=== PATIENT | male | born 1950 | race Caucasian/White ===

== ENCOUNTER 2016-12-23 08:14 | Emergency (ER) | payer MEDICARE ==
[2016-12-23 08:26] VITALS: BP 120/65
--- NOTE | 2016-12-23 09:31 | UC ---
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 no fever. - History of Current Complaint Chief Complaint: UCGeneralIllness Stated Complaint: SORE THROAT Time Seen by Provider: 12/23/16 08:27 Hx Obtained From: Patient Onset/Duration: Gradual Onset, Lasting Days Severity: Moderate Pain Intensity: 6 Pain Scale Used: 0-10 Numeric Cough: Productive - yellow Associated Signs & Symptoms: Positive: Dysphagia, Hoarseness, Nasal Discharge. Negative: Fever - Epiglottits Risk Factors Epiglottis Risk Factors: Negative - Allergies/Home Medications Allergies/Adverse Reactions: Allergies Allergy/AdvReac Type Severity Reaction Status Date / Time No Known Allergies Allergy Verified 04/21/15 21:27 Home Medications: Home Medications A-Fib 1 tab PO DAILY 12/23/16 [History Confirmed 12/23/16] Aspirin [Aspirin Childrens] 81 mg PO DAILY 12/23/16 [History Confirmed 12/23/16] Metformin HCl [Glucophage] 1,000 mg PO DAILY 12/23/16 [History Confirmed ] PMH/Surg Hx/FS Hx/Imm Hx Endocrine History Of: Reports: Diabetes Cardiovascular History Of: Reports: Cardiac Disorders - A-fib, Hypertension - Surgical History Surgical History: Yes Surgery Procedure, Year, and Place: cardiac catheterization - Family History Known Family History: Positive: Cardiac Disease - Social History 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 Alcohol Use: Rare Substance Use Type: None Smoking Status (MU): Former Smoker When Did the Patient Quit Smoking/Using Tobacco: ~1984 - Immunization History Most Recent Tetanus Shot: Unsure Review of Systems Constitutional: Negative Skin: Negative Eyes: Negative ENT: Sore Throat Respiratory: Cough Cardiovascular: Negative Gastrointestinal: Negative Genitourinary: Negative Motor: Negative Neurovascular: Negative Musculoskeletal: Negative Neurological: Negative Psychological: Negative All Other Systems Reviewed And Are Negative: Yes Physical Exam Triage Information Reviewed: Yes Appearance: Ill-Appearing, Pain Distress, Obese Vital Signs: Initial Vital Signs Temp 98.4 F 12/23/16 08:20 Pulse 71 12/23/16 08:20 Resp 16 12/23/16 08:20 BP 120/65 12/23/16 08:20 Pulse Ox 95 12/23/16 08:20 Vital Signs Reviewed: Yes Eyes: Positive: Conjunctiva Clear ENT: Positive: Pharyngeal erythema, Nasal drainage, TMs normal, Tonsillar swelling Neck: Positive: Supple, Nontender, No Lymphadenopathy Respiratory: Positive: Lungs clear, Normal breath sounds, No respiratory distress Cardiovascular: Positive: RRR, No Murmur, Pulses Normal, Brisk Capillary Refill Musculoskeletal: Positive: Strength Intact, ROM Intact Neurological: Positive: Alert, Muscle Tone Normal Psychological Exam: Normal Skin Exam: Normal Throat Pain/Nasal Course/Dx - Course Course Of Treatment: rapid strep positive - Differential Dx/Diagnosis Differential Diagnosis/HQI/PQRI: Influenza, Pharyngitis, Sinusitis, URI Provider Diagnoses: strep pharyngitis Discharge - Discharge Plan Condition: Stable Disposition: HOME Prescriptions: Amoxicillin (*) 875 mg PO BID #20 tab Patient Education Materials: Strep Throat (ED) Referrals: Delfino Cochran MD [Primary Care Provider] -
== END 2016-12-23 09:44 | disposition home or self-care (01) ==
LOC: UCCORT 08:14
DX: J02.0 Streptococcal pharyngitis (principal); E11.9 Type 2 diabetes mellitus without complications; E66.9 Obesity, unspecified; Z87.891 Personal history of nicotine dependence; Z79.82 Long term (current) use of aspirin
CPT/HCPCS: 87651; 99212; G0463

== ENCOUNTER 2017-01-20 11:13 | Emergency (ER) | payer MEDICARE ==
[2017-01-20 13:32] VITALS: BP 121/63
--- NOTE | 2017-01-20 13:39 | UC ---
Throat Pain/Nasal Elian HPI - HPI Summary HPI Summary: Day 2 of body aches and sore throat - History of Current Complaint Chief Complaint: UCGeneralIllness Stated Complaint: SORE THROAT,FEVER Time Seen by Provider: 01/20/17 13:26 Hx Obtained From: Patient Onset/Duration: Sudden Onset, Lasting Days - 2, Still Present Severity: Moderate Pain Intensity: 6 Pain Scale Used: 0-10 Numeric Cough: None Associated Signs & Symptoms: Positive: Negative - Allergies/Home Medications Allergies/Adverse Reactions: Allergies Allergy/AdvReac Type Severity Reaction Status Date / Time No Known Allergies Allergy Verified 01/20/17 13:33 Home Medications: Home Medications Diltiazem HCl Coated Beads [Cartia Xt] 120 mg PO DAILY 01/20/17 [History Confirmed 01/20/17] PMH/Surg Hx/FS Hx/Imm Hx Previously Healthy: No Endocrine History Of: Reports: Diabetes Cardiovascular History Of: Reports: Cardiac Disorders - A-fib, Hypertension - Surgical History Surgical History: Yes Surgery Procedure, Year, and Place: cardiac catheterization - Family History Known Family History: Positive: Cardiac Disease - Social History Occupation: Employed Full-time - owns a daycare, Retired - from [email or web address] Lives: With Family Alcohol Use: Rare Substance Use Type: None Smoking Status (MU): Former Smoker When Did the Patient Quit Smoking/Using Tobacco: ~1985 - Immunization History Most Recent Influenza Vaccination: Current for Season Most Recent Tetanus Shot: 04/21/15 Review of Systems Constitutional: Fatigue Skin: Negative Eyes: Negative ENT: Sore Throat Respiratory: Negative Cardiovascular: Negative Gastrointestinal: Negative Genitourinary: Negative Motor: Negative Neurovascular: Negative Musculoskeletal: Arthralgia, Myalgia Neurological: Negative Psychological: Negative All Other Systems Reviewed And Are Negative: Yes Physical Exam Triage Information Reviewed: Yes Appearance: Well-Appearing, No Pain Distress, Well-Nourished Vital Signs: Initial Vital Signs Temp 97.2 F 01/20/17 13:28 Pulse 50 01/20/17 13:28 Resp 16 01/20/17 13:28 BP 121/63 01/20/17 13:28 Pulse Ox 94 01/20/17 13:28 Vital Signs Reviewed: Yes Eye Exam: Normal Eyes: Positive: Conjunctiva Clear ENT Exam: Other ENT: Positive: Hearing grossly normal, Pharyngeal erythema, Nasal congestion, TMs normal. Negative: Nasal drainage, Tonsillar swelling, Tonsillar exudate, Trismus, Muffled/hoarse voice Neck exam: Normal Neck: Positive: Supple, Nontender, No Lymphadenopathy Respiratory Exam: Normal Respiratory: Positive: Chest non-tender, Lungs clear, Normal breath sounds, No respiratory distress, No accessory muscle use Cardiovascular Exam: Other - irregular (pt reports chronic a-fib) Cardiovascular: Positive: No Murmur, Pulses Normal, Brisk Capillary Refill Musculoskeletal Exam: Normal Musculoskeletal: Positive: Strength Intact, ROM Intact, No Edema Neurological Exam: Normal Neurological: Positive: Alert, Muscle Tone Normal Psychological Exam: Normal Skin Exam: Normal Diagnostics - Laboratory Diagnostic Studies Completed/Ordered: RST (+) Throat Pain/Nasal Course/Dx - Course Course Of Treatment: Amoxicillin, increase fluids, follow with pcp, tylenol for pain - Differential Dx/Diagnosis Differential Diagnosis/HQI/PQRI: Influenza, Laryngitis, Pharyngitis, Sinusitis, URI Provider Diagnoses: Strep Pharyngitis Discharge - Discharge Plan Condition: Stable Disposition: HOME Prescriptions: Amoxicillin CAP* 500 mg PO TID #30 cap Patient Education Materials: Acetaminophen (By mouth), Strep Throat (ED) Referrals: Delfino Cochran MD [Primary Care Provider] - If Needed
== END 2017-01-20 14:06 | disposition home or self-care (01) ==
LOC: UCCORT 11:13
DX: J02.0 Streptococcal pharyngitis (principal); I48.91 Unspecified atrial fibrillation; Z87.891 Personal history of nicotine dependence
CPT/HCPCS: 87651; 99212; G0463

== ENCOUNTER 2017-02-12 07:04 | Emergency (ER) | payer MEDICARE ==
[2017-02-12 07:19] VITALS: BP 135/71
--- NOTE | 2017-02-12 07:29 | UC ---
Throat Pain/Nasal Elian HPI - HPI Summary HPI Summary: SORE THROAT X 2 DAYS + NASAL CONGESTION , NO COUGH, NO FEVER OR CHILLS - History of Current Complaint Chief Complaint: UCRespiratory Stated Complaint: SORE THROAT Time Seen by Provider: 02/12/17 07:18 Hx Obtained From: Patient Onset/Duration: Gradual Onset, Lasting Days - 2, Still Present Severity: Moderate Cough: None Associated Signs & Symptoms: Positive: Nasal Discharge. Negative: Dysphagia, FB Sensation, Drooling, Wheezing, Hoarseness, Sinus Discomfort, Fever, Vomiting , Rash - Allergies/Home Medications Allergies/Adverse Reactions: Allergies Allergy/AdvReac Type Severity Reaction Status Date / Time No Known Allergies Allergy Verified 02/12/17 07:19 Home Medications: Home Medications Ibuprofen TAB* [Motrin TAB* 800 MG] 800 mg PO ONCE PRN 02/12/17 [History Confirmed 02/12/17] PMH/Surg Hx/FS Hx/Imm Hx Endocrine History Of: Reports: Diabetes Cardiovascular History Of: Reports: Cardiac Disorders - A-fib, Hypertension - Surgical History Surgical History: Yes Surgery Procedure, Year, and Place: cardiac catheterization - Family History Known Family History: Positive: Cardiac Disease - Social History Alcohol Use: Rare Substance Use Type: None Smoking Status (MU): Former Smoker When Did the Patient Quit Smoking/Using Tobacco: ~1985 - Immunization History Most Recent Influenza Vaccination: Current for Season Most Recent Tetanus Shot: 04/21/15 Review of Systems Constitutional: Negative Skin: Negative Eyes: Negative ENT: Sore Throat, Nasal Discharge Respiratory: Negative Cardiovascular: Negative Gastrointestinal: Negative All Other Systems Reviewed And Are Negative: Yes Physical Exam Triage Information Reviewed: Yes Appearance: Well-Appearing, No Pain Distress, Well-Nourished Vital Signs: Initial Vital Signs Temp 97.7 F 02/12/17 07:09 Pulse 67 02/12/17 07:09 Resp 18 02/12/17 07:09 BP 135/71 02/12/17 07:09 Eyes: Positive: Conjunctiva Clear ENT Exam: Normal ENT: Positive: Normal ENT inspection, Hearing grossly normal, Pharyngeal erythema, Nasal congestion. Negative: Nasal drainage, TMs normal, TM bulging, TM dull, TM red Neck exam: Normal Neck: Positive: Supple, Nontender, No Lymphadenopathy Respiratory Exam: Normal Respiratory: Positive: Chest non-tender, Lungs clear, Normal breath sounds, No respiratory distress Cardiovascular: Positive: RRR, No Murmur, Pulses Normal, Brisk Capillary Refill Abdominal Exam: Normal Skin Exam: Normal Throat Pain/Nasal Course/Dx - Differential Dx/Diagnosis Provider Diagnoses: STREP PHARYNGITIS Discharge - Discharge Plan Condition: Stable Disposition: HOME Prescriptions: Amoxicillin (*) [Amoxicillin 875 MG (*)] 875 mg PO BID #20 tab Referrals: Delfino Cochran MD [Primary Care Provider] - If Needed
== END 2017-02-12 07:35 | disposition home or self-care (01) ==
LOC: UCCORT 07:04
DX: J02.0 Streptococcal pharyngitis (principal); I48.91 Unspecified atrial fibrillation; Z87.891 Personal history of nicotine dependence
CPT/HCPCS: 87651; 99212; G0463

== ENCOUNTER 2017-03-05 10:12 | Emergency (ER) | payer MEDICARE ==
[2017-03-05 11:26] VITALS: BP 114/59
--- NOTE | 2017-03-05 11:58 | UC ---
Throat Pain/Nasal Elian HPI - HPI Summary HPI Summary: ST and feeling worn-out since last night. Pt feels like it is strep -- has been dx with strep here 3 other times since December, is pursuing a follow-up with an ENT (sister works for one and will get him an appointment). Owns daycare center. Last treatment was February 12, felt like symptoms completely disappeared until last night. - History of Current Complaint Chief Complaint: UCRespiratory Stated Complaint: SORE THROAT,FATIGUE Time Seen by Provider: 03/05/17 11:28 Hx Obtained From: Patient Onset/Duration: Gradual Onset, Lasting Hours Severity: Mild Cough: None - Allergies/Home Medications Allergies/Adverse Reactions: Allergies Allergy/AdvReac Type Severity Reaction Status Date / Time No Known Allergies Allergy Verified 03/05/17 11:26 PMH/Surg Hx/FS Hx/Imm Hx Endocrine History Of: Reports: Diabetes Cardiovascular History Of: Reports: Cardiac Disorders - A-fib, Hypertension - Surgical History Surgical History: Yes Surgery Procedure, Year, and Place: cardiac catheterization - Family History Known Family History: Positive: Cardiac Disease - Social History Occupation: Employed Full-time Alcohol Use: None Substance Use Type: None Smoking Status (MU): Former Smoker When Did the Patient Quit Smoking/Using Tobacco: ~1984 - Immunization History Most Recent Influenza Vaccination: Current for Season Most Recent Tetanus Shot: 04/21/15 Review of Systems Constitutional: Fatigue Skin: Negative Eyes: Negative ENT: Sore Throat Respiratory: Negative Cardiovascular: Negative Gastrointestinal: Negative Genitourinary: Negative Motor: Negative Neurovascular: Negative Musculoskeletal: Negative Neurological: Negative Psychological: Negative All Other Systems Reviewed And Are Negative: Yes Physical Exam Triage Information Reviewed: Yes Appearance: Well-Appearing, No Pain Distress, Well-Nourished Vital Signs: Initial Vital Signs Temp 97.6 F 03/05/17 11:20 Pulse 66 03/05/17 11:20 Resp 18 03/05/17 11:20 BP 114/59 03/05/17 11:20 Pulse Ox 95 03/05/17 11:20 Vital Signs Reviewed: Yes Eye Exam: Normal Eyes: Positive: Conjunctiva Clear ENT Exam: Normal ENT: Positive: Hearing grossly normal, Pharynx normal, TMs normal. Negative: Tonsillar swelling, Tonsillar exudate Dental Exam: Normal Neck: Positive: Nontender, Enlarged Nodes @ - tonsillar Respiratory Exam: Normal Respiratory: Positive: Chest non-tender, Lungs clear, Normal breath sounds, No respiratory distress, No accessory muscle use Cardiovascular Exam: Normal Cardiovascular: Positive: RRR, No Murmur Musculoskeletal Exam: Normal Neurological Exam: Normal Neurological: Positive: Alert Psychological Exam: Normal Skin Exam: Normal Throat Pain/Nasal Course/Dx - Differential Dx/Diagnosis Provider Diagnoses: recurrent strep throat Discharge - Discharge Plan Condition: Stable Disposition: HOME Prescriptions: Cefuroxime Axetil [Ceftin 250 MG] 250 mg PO BID #20 tab Patient Education Materials: Strep Throat (ED) Referrals: Delfino Cochran MD [Primary Care Provider] - Additional Instructions: If you have trouble arranging for follow-up with the ENT of your choice, you can call [phone] to arrange for an appointment with one in [place].
== END 2017-03-05 12:12 | disposition home or self-care (01) ==
LOC: UCCORT 10:12
DX: J02.0 Streptococcal pharyngitis (principal); E11.9 Type 2 diabetes mellitus without complications; I48.91 Unspecified atrial fibrillation; I10 Essential (primary) hypertension; Z87.891 Personal history of nicotine dependence
CPT/HCPCS: 87651; 99212; G0463

== ENCOUNTER 2017-11-18 09:12 | Emergency (ER) | payer MEDICARE ==
--- NOTE | 2017-11-18 09:51 | UC ---
Throat Pain/Nasal Elian HPI - HPI Summary HPI Summary: 67 y/o male presents to the urgent care c/o sore throat and Rt side ear pain for the past 3 days. Pt reports he has Hx of recurrent strep infections. This year he has visit the clinic 5X with strep. He f/u with ENT on 04/2017 and he recommended that if one more time he will do surgery on him. However symptoms resolved in the summer and now are back. Pt states he has Hx of A-fib, HTN on BB. His PCP change the BB about 6 months, but he can't recall the name of medication. Pain with swallowing is 5/10. He has not taking anything to alleviate symptoms. Pt denies nasal congestion, cough, FOSTER, SOB, chest pain, N/V/ D or abdominal pain or urinary symptoms. 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 Negative : Fever - Epiglottits Risk Factors Epiglottis Risk Factors: Negative - Allergies/Home Medications Allergies/Adverse Reactions: Allergies Allergy/AdvReac Type Severity Reaction Status Date / Time No Known Allergies Allergy Verified 11/18/17 10:00 Home Medications: Home Medications Other Bp Med 1 tab PO DAILY 11/18/17 [History Confirmed 11/18/17] PMH/Surg Hx/FS Hx/Imm Hx Previously Healthy: Yes Endocrine History: Diabetes Cardiovascular History: Hypertension, Atrial Fibrillation Psychological History: Anxiety - Surgical History Surgical History: Yes Surgery Procedure, Year, and Place: cardiac catheterization - Family History Known Family History: Positive: Cardiac Disease, Hypertension - Social History Occupation: Employed Full-time Lives: With Family Alcohol Use: None Substance Use Type: None Smoking Status (MU): Former Smoker When Did the Patient Quit Smoking/Using Tobacco: ~1984 - Immunization History Most Recent Influenza Vaccination: Current for Season Most Recent Tetanus Shot: 04/21/15 Review of Systems Constitutional: Negative Skin: Negative Eyes: Negative ENT: Sore Throat, Ear Ache - RT ear pain Respiratory: Negative Cardiovascular: Negative Gastrointestinal: Negative Genitourinary: Negative Motor: Negative Neurovascular: Negative Musculoskeletal: Negative Neurological: Negative Psychological: Negative Is Patient Immunocompromised?: No All Other Systems Reviewed And Are Negative: Yes Physical Exam Triage Information Reviewed: Yes - Additional Comments VITAL SIGNS: Reviewed. GENERAL: Patient is a well developed and nourished obese male who is sitting comfortable in the examining table. Patient is not in any acute respiratory distress. HEAD AND FACE: No signs of trauma. No ecchymosis, hematomas or skull depressions. No sinus tenderness. EYES: PERRLA, EOMI x 2, No injected conjunctiva, no nystagmus. No photophobia. EARS: Hearing grossly intact. Ear canals and tympanic membranes are within normal limits. MOUTH: Positive pharynx with erythema, no exudates, mild palatal petechiae. no B /L tonsillar enlargement. Uvula in midline. NECK: Supple, trachea is midline, Positive anterior cervical lymphadenopathy, no JVD, no carotid bruit, no c-spine tenderness, neck with full ROM. No meningeal signs, no Kernig's or brudzinskis signs. CHEST: Symmetric, no tenderness at palpation LUNGS: Clear to auscultation bilaterally. No wheezing or crackles. CVS: Regular rate and rhythm, S1 and S2 present, no murmurs or gallops appreciated. ABDOMEN: Soft, non-tender. No signs of distention. No rebound no guarding, and no masses palpated. Bowel sounds are normal. EXTREMITIES: FROM in all major joints, no edema, no cyanosis or clubbing. NEURO: Alert and oriented x 3. No acute neurological deficits. Speech is normal and follows commands. SKIN: Dry and warm Throat Pain/Nasal Course/Dx - Course Course Of Treatment: 67 y/o male presents to the urgent care c/o sore throat and Rt side ear pain for the past 3 days. Pt reports he has Hx of recurrent strep infections. This year he has visit the clinic 5X with strep. He f/u with ENT on 04/2017 and he recommended that if one more time he will do surgery on him. However symptoms resolved in the summer and now are back. Pt states he has Hx of A-fib, HTN on BB. His PCP changed the BB about 6 months, but he can't recall the name of medication. Pain with swallowing is 5/10. He has not taking anything to alleviate symptoms. Pt denies nasal congestion, cough, FOSTER, SOB, chest pain, N/V/D or abdominal pain or urinary symptoms. 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 Hx obtained. Pt with pharyngitis on examination. As per nurse Pt is bradycardic. Pt with Hx of A-fib on BB. Pt asymptomatic. However EKG ordered to r/o any abnormality: NSR, HR: 62bpm, no S - elevations. Pt with Viral pharyngitis.Pt Rx ibuprofen PO to alleviate symptoms of pain and swelling. Advised on hand washing to avoid spreading. Pt advised to rest, eat well and avoid strenuous exercise. If symptoms do not improve or worsen advised to return to the urgent care or f/u with her PCP for further evaluation and treatment. Pt understood and agreed - Differential Dx/Diagnosis Differential Diagnosis/HQI/PQRI: Influenza, Laryngitis, Mononucleosis, Peritonsillar Abscess, Pharyngitis, Tonsillitis, URI Provider Diagnoses: 1- Viral pharyngitis Discharge - Discharge Plan Condition: Stable Disposition: HOME Prescriptions: Acetaminophen TAB* [Tylenol TAB*] 650 mg PO Q6H PRN #20 tab PRN Reason: Sore Throat Patient Education Materials: Pharyngitis (ED), Low Sodium Diet (ED) Referrals: Delfino Cochran MD [Primary Care Provider] - Additional Instructions: 1-Please take Tylenol PO q6-8hrs prn as instructed after meals to alleviate pain and swelling. Increase fluid intake, eat well, rest and avoid strenuous exercise 2-If symptoms do not improve or worsen please return to the urgent care or f/u with your PCP for further evaluation and treatment. 3-Your BP is elevated today. please decrease salt in your diet, monitor BP and if it continues to be elevated please f/u with your PCP for further management
[2017-11-18 10:38] VITALS: BP 148/80
== END 2017-11-18 10:43 | disposition home or self-care (01) ==
LOC: UCCORT 09:12
DX: J02.9 Acute pharyngitis, unspecified (principal); I10 Essential (primary) hypertension; I48.91 Unspecified atrial fibrillation; F41.9 Anxiety disorder, unspecified; Z87.891 Personal history of nicotine dependence
CPT/HCPCS: 87651; 93005; 99212; G0463

== ENCOUNTER 2018-01-17 09:01 | Emergency (ER) | payer MEDICARE ==
[2018-01-17 10:45] VITALS: BP 102/69
--- NOTE | 2018-01-17 10:54 | UC ---
Throat Pain/Nasal Elian HPI - HPI Summary HPI Summary: PT IS C/O NASAL CONGESTION WITH THICK YELLOW DRAINAGE AND SINUS PAIN CAUSING A HEADACHE FOR 12 DAYS. HE NOTES HE ISN'T IMPROVING. HE DENIES FEVER. PT IS A DIABETIC BUT NOTES BS IS STABLE, NOT ELEVATED WITH THIS. THE POST NASAL DRIP IS CAUSING A SORE THROAT, COUGH AND HE NOTES EAR PRESSURE. - History of Current Complaint Stated Complaint: FOSTER,ST Time Seen by Provider: 01/17/18 10:42 Hx Obtained From: Patient Onset/Duration: Gradual Onset Pain Intensity: 5 Cough: Nonproductive Associated Signs & Symptoms: Positive: Sinus Discomfort, Nasal Discharge. Negative: Wheezing, Fever - Epiglottits Risk Factors Epiglottis Risk Factors: Negative - Allergies/Home Medications Allergies/Adverse Reactions: Allergies Allergy/AdvReac Type Severity Reaction Status Date / Time No Known Allergies Allergy Verified 11/18/17 10:00 Home Medications: Home Medications Atorvastatin* [Lipitor 40 MG*] 40 mg PO DAILY 01/17/18 [History Confirmed ] Dulaglutide [Trulicity] 01/17/18 [History] Metoprolol Tartrate [Lopressor] 100 mg PO 01/17/18 [History] PMH/Surg Hx/FS Hx/Imm Hx Previously Healthy: No - plus per triage note Endocrine History: Diabetes, Dyslipidemia Cardiovascular History: Hypertension, Atrial Fibrillation - Surgical History Surgical History: Yes Surgery Procedure, Year, and Place: cardiac catheterization - Family History Known Family History: Positive: Cardiac Disease, Hypertension - Social History Alcohol Use: None Substance Use Type: None Smoking Status (MU): Former Smoker Have You Smoked in the Last Year: No When Did the Patient Quit Smoking/Using Tobacco: ~1984 - Immunization History Most Recent Influenza Vaccination: Current for Season Most Recent Tetanus Shot: 04/21/15 Review of Systems Constitutional: Negative Skin: Negative Eyes: Negative ENT: Sore Throat, Ear Ache, Nasal Discharge, Sinus Congestion, Sinus Pain/ Tenderness Respiratory: Cough Cardiovascular: Negative Gastrointestinal: Negative Genitourinary: Negative Motor: Negative Neurovascular: Negative Musculoskeletal: Negative Neurological: Negative Psychological: Negative All Other Systems Reviewed And Are Negative: Yes Physical Exam Triage Information Reviewed: Yes Appearance: Well-Appearing Vital Signs: Initial Vital Signs Temp 97.8 F 01/17/18 10:38 Pulse 71 01/17/18 10:38 Resp 16 01/17/18 10:38 BP 102/69 01/17/18 10:38 Pulse Ox 98 01/17/18 10:38 Vital Signs Reviewed: Yes Eyes: Positive: Conjunctiva Clear ENT: Positive: Hearing grossly normal, Pharynx normal, Nasal congestion, Nasal drainage, TMs normal, Sinus tenderness Neck: Positive: Supple, Nontender, No Lymphadenopathy Respiratory: Positive: Lungs clear, Normal breath sounds Cardiovascular: Positive: No Murmur, Other: - irregular c/w his a-fib Abdomen Description: Positive: Nontender, No Organomegaly, Soft Bowel Sounds: Positive: Present Neurological Exam: Normal Psychological: Positive: Age Appropriate Behavior Skin Exam: Normal Throat Pain/Nasal Course/Dx - Course Course Of Treatment: ill x 12 days with sinus pain causing FOSTER and thick yellow d /c plus sinusitis on exam thus will tx. - Differential Dx/Diagnosis Provider Diagnoses: sinusitis Discharge - Discharge Plan Condition: Stable Disposition: HOME Prescriptions: Amoxicillin/Clavulanate TAB* [Augmentin TAB 875*] 875 mg PO BID 10 Days #20 tab Patient Education Materials: Sinusitis (ED) Referrals: Delfino Cochran MD [Primary Care Provider] - 7 Days Additional Instructions: CONSIDER FLONASE OVER THE COUNTER PER LABEL WELL.
== END 2018-01-17 10:59 | disposition home or self-care (01) ==
LOC: UCCORT 09:01
DX: J32.9 Chronic sinusitis, unspecified (principal); E78.5 Hyperlipidemia, unspecified; E11.9 Type 2 diabetes mellitus without complications; Z79.84 Long term (current) use of oral hypoglycemic drugs; I10 Essential (primary) hypertension; I48.91 Unspecified atrial fibrillation; Z87.891 Personal history of nicotine dependence
CPT/HCPCS: 99212; G0463

== ENCOUNTER 2018-04-17 12:14 | Emergency (ER) | payer MEDICARE ==
--- NOTE | 2018-04-17 13:21 | UC ---
Lower Extremity/Ankle HPI - HPI Summary HPI Summary: pain left great toe x 5 days + redness , swelling , discharge, no injury - History of Current Complaint Chief Complaint: UCSkin Stated Complaint: LT FOOT COMP Time Seen by Provider: 04/17/18 12:53 Hx Obtained From: Patient Onset/Duration: Gradual Onset, Lasting Days - 5, Still Present Severity Currently: Moderate Pain Intensity: 10 Aggravating Factor(s): Standing, Ambulation Alleviating Factor(s): Nothing Able to Bear Weight: Yes - Allergies/Home Medications Allergies/Adverse Reactions: Allergies Allergy/AdvReac Type Severity Reaction Status Date / Time No Known Allergies Allergy Verified 04/17/18 12:49 PMH/Surg Hx/FS Hx/Imm Hx Cardiovascular History: Cardiac Disease, Hypertension, Atrial Fibrillation - Surgical History Surgical History: Yes Surgery Procedure, Year, and Place: cardiac catheterization - Family History Known Family History: Positive: Cardiac Disease, Hypertension - Social History Alcohol Use: None Substance Use Type: None Smoking Status (MU): Former Smoker Have You Smoked in the Last Year: No When Did the Patient Quit Smoking/Using Tobacco: ~1984 - Immunization History Most Recent Influenza Vaccination: Current for Season Most Recent Tetanus Shot: 04/21/15 Review of Systems Constitutional: Negative Skin: Negative Eyes: Negative ENT: Negative Respiratory: Negative Cardiovascular: Negative Gastrointestinal: Negative Motor: Negative Is Patient Immunocompromised?: No All Other Systems Reviewed And Are Negative: Yes Physical Exam Triage Information Reviewed: Yes Appearance: Well-Appearing, No Pain Distress, Well-Nourished Vital Signs: Initial Vital Signs Temp 97.5 F 04/17/18 12:47 Pulse 40 04/17/18 12:47 Resp 16 04/17/18 12:47 BP 101/0 04/17/18 12:47 Pulse Ox 96 04/17/18 12:47 Vital Signs Reviewed: Yes Eyes: Positive: Conjunctiva Clear ENT: Positive: Normal ENT inspection, Hearing grossly normal, Pharynx normal Neck exam: Normal Neck: Positive: Supple, Nontender, No Lymphadenopathy Respiratory: Positive: Chest non-tender, Lungs clear, Normal breath sounds Cardiovascular: Positive: Bradycardia, Other: - irrigularly irrigular Abdominal Exam: Normal Skin: Positive: Other - left great toe : + paronychia, swelling , erythema , tender to touch Lower Extremity Course/Dx - Differential Dx/Diagnosis Provider Diagnoses: [email or web address] Discharge - Sign-Out/Discharge Documenting (check all that apply): Discharge/Admit/Transfer - Discharge Plan Condition: Good Disposition: HOME Prescriptions: Cephalexin CAP* [Keflex CAP*] 500 mg PO TID #30 cap Patient Education Materials: A-fib (Atrial Fibrillation) (ED), Paronychia (ED) Referrals: Claus Correia MD [Medical Doctor] - 04/17/18 1:16 pm Sohan Teixeira DO [Primary Care Provider] - 7 Days Additional Instructions: please follow up with your family consumer science teacher jose martin - Billing Disposition and Condition Condition: GOOD Disposition: HOME
== END 2018-04-17 13:30 | disposition home or self-care (01) ==
LOC: UCCORT 12:14
DX: L03.032 Cellulitis of left toe (principal); I48.91 Unspecified atrial fibrillation; Z87.891 Personal history of nicotine dependence; I10 Essential (primary) hypertension
CPT/HCPCS: 93005; 99212; G0463

== ENCOUNTER 2018-05-30 07:02 | Emergency (ER) | payer MEDICARE ==
[2018-05-30 07:20] VITALS: BP 111/73
--- NOTE | 2018-05-30 07:29 | UC ---
Throat Pain/Nasal Elian HPI - HPI Summary HPI Summary: Patient presents to with complaints of sore throat since 2 days. Patient states pain mostly on the left side. Patient states it seems worse at night. Patient has taken ibuprofen with good relief. Patient denies headache. Patient does have postnasal drip which causes him to cough. Patient denies fevers or chills. Mild painful swallowing. No drooling. No difficulty with secretions. No nausea or vomiting. Patient states he went to daycare frequently Strep. Patient states this feels slightly different than past experiences. There was a child with positive strep yesterday. Patient's medications reviewed this visit - History of Current Complaint Chief Complaint: UCRespiratory Stated Complaint: SORE THROAT Time Seen by Provider: 05/30/18 07:11 Hx Obtained From: Patient, Medical Records Onset/Duration: Gradual Onset Severity: Moderate Pain Intensity: 4 Pain Scale Used: 0-10 Numeric Cough: Nonproductive - Allergies/Home Medications Allergies/Adverse Reactions: Allergies Allergy/AdvReac Type Severity Reaction Status Date / Time No Known Allergies Allergy Verified 05/30/18 07:20 PMH/Surg Hx/FS Hx/Imm Hx Previously Healthy: Yes Endocrine History: Diabetes Cardiovascular History: Hypertension - Surgical History Surgical History: Yes Surgery Procedure, Year, and Place: cardiac catheterization - Family History Known Family History: Positive: Cardiac Disease, Hypertension - Social History Occupation: Employed Full-time - Owns a daycare Lives: With Family Alcohol Use: None Substance Use Type: None Smoking Status (MU): Former Smoker Type: Cigarettes Amount Used/How Often: 1 ppd Have You Smoked in the Last Year: No When Did the Patient Quit Smoking/Using Tobacco: ~1984 - Immunization History Most Recent Influenza Vaccination: Current for Season Most Recent Tetanus Shot: 04/21/15 Review of Systems Constitutional: Negative ENT: Sore Throat, Other - Postnasal drip All Other Systems Reviewed And Are Negative: Yes Physical Exam - Summary Physical Exam Summary: Vital Signs Reviewed: Yes A+Ox3, no distress Eyes: Conjunctiva Clear, ANASTACIO. EOM intact and full ENT: Hearing grossly normal left TM with fluid. no erythema, no buldge turbinates boggy, mmoist, uvula midline, no exudate, no erythema Neck: Positive: Supple mild left submand LA Respiratory: Positive: No respiratory distress, No accessory muscle use + CTA throughout no w/r Cardiovascular: RRR nl s1, s2 no m/r CBT <2 sec abd soft + BS nt/nd no guarding, no distension Musculoskeletal Exam: WATTERS x 4 without difficulty Neurological: Positive: Alert, + sensation throughout Psychological: Positive: Normal Response To Family Skin: Positive: no rash, no ecchymosis Triage Information Reviewed: Yes Vital Signs: Initial Vital Signs Temp 96.9 F 05/30/18 07:15 Pulse 69 05/30/18 07:15 Resp 16 05/30/18 07:15 BP 111/73 05/30/18 07:15 Pulse Ox 96 05/30/18 07:15 Throat Pain/Nasal Course/Dx - Course Course Of Treatment: Patient presents emergency Department with left-sided throat pain radiated towards his left ear. Patient with the daycare was exposed to strep. Patient states he has frequently had strep in the past. Vital signs are stable. On exam, patient with some serous otitis on the left. Patient also with boggy turbinates and postnasal drip. Patient does not have any erythema or exudate. Patient's rapid strep is negative. We will send for culture given his exposures. Will not start antibiotics at this time. Will recommend patient take allergy medications such as Claritin or Yaneli. Also will prescribe Flonase. Discussed with patient this is a steroid may cause a slight increase in his blood sugars. Patient recommended to follow up with primary care provider. Patient comfortable and in agreement with plan. Strict return precautions. Secretion precautions discussed - Differential Dx/Diagnosis Provider Diagnoses: Pharyngitis. Post nasal drip. Left otitis serous Discharge - Sign-Out/Discharge Documenting (check all that apply): Discharge/Admit/Transfer - Discharge Plan Condition: Stable Disposition: HOME Prescriptions: Fluticasone NASAL SPRAY 50MCG* [Flonase NASAL SPRAY 50MCG*] 2 spray BOTH NARES DAILY #1 btl Patient Education Materials: Pharyngitis (ED), Serous Otitis Media (ED), Postnasal Drip (DC) Referrals: Sohan Teixeira DO [Primary Care Provider] - Additional Instructions: - Okay to alternate ibuprofen (Advil, Motrin) and Tylenol every 3 hours for pain. Take with food. Do NOT take for more than 4-5 days - Okay to gargle and spit every 4 hours as needed for pain - Stay well hydrated - frequent sips of cold fluids will be soothing to your throat (popsicles, jello, ice cream, ice water). Avoid excess caffeine until your symptoms have resolved. - Do not share eating, drinking utensils. Throw out your toothbrush when your symptoms resolved - use nasal spray daily as instructed. This may cause a mild increased in your blood sugar levels - it is recommended you take an allergy medications such as Claritin, Zytrec, Yaneli - Your throat sample has been sent for additional testing. These results will take 1-2 days to come back. If you need antibiotics, we will contact you. -Throat infections are spread by oral secretions - do not share eating or drinking utensils until you symptoms are resolved. Clean items that may get your secretions such as cell phones, ipads, computer mouse, television remotes - Contact your doctor to arrange a follow-up appointment as needed - Billing Disposition and Condition Condition: STABLE Disposition: Home
== END 2018-05-30 07:56 | disposition home or self-care (01) ==
LOC: UCCORT 07:02
DX: J02.9 Acute pharyngitis, unspecified (principal); R09.82 Postnasal drip; H65.92 Unspecified nonsuppurative otitis media, left ear; Z87.891 Personal history of nicotine dependence
CPT/HCPCS: 87070; 87651; 99212; G0463

== ENCOUNTER 2018-07-25 09:09 | Emergency (ER) | payer MEDICARE ==
[2018-07-25 09:58] VITALS: BP 144/85
--- NOTE | 2018-07-25 10:26 | UC ---
Complaint Male HPI - HPI Summary HPI Summary: FREQUENT-BURNING URINATION X 10 DAYS. TODAY NOTED SOME BLOOD WELL X1. NO FEVER, ABDOMEN OR FLANK PAIN. NO PELVIC PAIN. NO HX PROSTATITIS OR UTI'S - History of Current Complaint Chief Complaint: UCGU Stated Complaint: URINARY Time Seen by Provider: 07/25/18 10:17 Hx Obtained From: Patient Onset/Duration: Gradual Onset Timing: Constant Pain Intensity: 5 Aggravating Factor(s): Nothing Alleviating Factor(s): Nothing Associated Signs And Symptoms: Positive: Hematuria, Dysuria. Negative: Back Pain, Fever - Allergies/Home Medications Allergies/Adverse Reactions: Allergies Allergy/AdvReac Type Severity Reaction Status Date / Time No Known Allergies Allergy Verified 07/25/18 09:56 PMH/Surg Hx/FS Hx/Imm Hx Endocrine History: Diabetes, Dyslipidemia Cardiovascular History: Hypertension - Surgical History Surgical History: Yes Surgery Procedure, Year, and Place: cardiac catheterization - Family History Known Family History: Positive: Cardiac Disease, Hypertension - Social History Occupation: Retired Alcohol Use: None Substance Use Type: None Smoking Status (MU): Former Smoker Type: Cigarettes Amount Used/How Often: 1 ppd Have You Smoked in the Last Year: No When Did the Patient Quit Smoking/Using Tobacco: ~1984 - Immunization History Most Recent Influenza Vaccination: Current for Season Most Recent Tetanus Shot: 04/21/15 Vaccination Up to Date: Yes Review of Systems Constitutional: Negative Skin: Negative Eyes: Negative ENT: Negative Respiratory: Negative Cardiovascular: Negative Gastrointestinal: Negative Genitourinary: Dysuria, Hematuria, Frequency Motor: Negative Neurovascular: Negative Musculoskeletal: Negative Neurological: Negative Psychological: Negative Is Patient Immunocompromised?: No All Other Systems Reviewed And Are Negative: Yes Physical Exam Triage Information Reviewed: Yes Appearance: Well-Appearing Vital Signs: Initial Vital Signs Temp 97.4 F 07/25/18 09:53 Pulse 73 07/25/18 09:53 Resp 17 07/25/18 09:53 BP 144/85 07/25/18 09:53 Pulse Ox 96 07/25/18 09:53 Vital Signs Reviewed: Yes Eyes: Positive: Conjunctiva Clear ENT: Positive: Normal ENT inspection Neck: Positive: Supple, Nontender Respiratory: Positive: Lungs clear, Normal breath sounds Cardiovascular: Positive: RRR, No Murmur Abdomen Description: Positive: Nontender, No Organomegaly, Soft. Negative: CVA Tenderness (R), CVA Tenderness (L), Distended, Guarding Bowel Sounds: Positive: Present Musculoskeletal: Positive: ROM Intact Neurological: Positive: Alert Psychological: Positive: Age Appropriate Behavior Skin Exam: Normal Complaint Male Course/Dx - Course Course Of Treatment: No concern for prostatitis, pyelonephritis and pt non toxic. risk for prolong qt with cipro thus will tx with cefdinir and close f/u for recheck with pcp. - Differential Dx/Diagnosis Provider Diagnoses: uti Discharge - Sign-Out/Discharge Documenting (check all that apply): Patient Departure All imaging exams completed and their final reports reviewed: Yes - Discharge Plan Condition: Stable Disposition: HOME Prescriptions: Cefdinir cap (NF) [Cefdinir 300 MG cap (NF)] 300 mg PO BID 7 Days #14 cap Patient Education Materials: Urinary Tract Infection in Men (ED) Referrals: Sohan Teixeira DO [Primary Care Provider] - 7 Days - Billing Disposition and Condition Condition: STABLE Disposition: Home
--- NOTE | 2018-07-27 08:34 | UC ---
- Progress Note Progress Note: Urine culture preliminary: E coli on cefdinir. No change Discharge - Sign-Out/Discharge Documenting (check all that apply): Post-Discharge Follow Up All imaging exams completed and their final reports reviewed: Yes - Discharge Plan Condition: Stable Disposition: HOME Prescriptions: Cefdinir cap (NF) [Cefdinir 300 MG cap (NF)] 300 mg PO BID 7 Days #14 cap Patient Education Materials: Urinary Tract Infection in Men (ED) Referrals: Sohan Teixeira DO [Primary Care Provider] - 7 Days - Billing Disposition and Condition Condition: STABLE Disposition: Home
== END 2018-07-25 10:35 | disposition home or self-care (01) ==
LOC: UCCORT 09:09
DX: N39.0 Urinary tract infection, site not specified (principal); B96.20 Unspecified Escherichia coli [E. coli] as the cause of diseases classified elsewhere; E11.9 Type 2 diabetes mellitus without complications; I10 Essential (primary) hypertension
CPT/HCPCS: 81003; 87077; 87086; 87186; 99212; G0463

== ENCOUNTER 2019-09-12 14:52 | Emergency (ER) | payer MEDICARE ==
--- OUTSIDE RECORDS SUMMARY | 2019-09-12 15:13 | XMS REPORT | Continuity of Care Document ---
:1950 External Reference #:[id number] Author Name Kishore Austin MD Address [address] [place] [id number] Problems Active Problems Provider Date Atrial fibrillation Kishore Austin MD Onset: 08/07/2019 Hyperlipidemia Kishore Austin MD Onset: 08/10/2019 Anxiety Kishore Austin MD Onset: 08/07/2019 Social History Type Date Description Comments Sex Unknown Tobacco Use Start: Unknown End: Former Cigarette Smoker Smoked for 30 Unknown years, Quit 25 years ago, 1ppd Smoking Status Reviewed: 08/07/19 Former Cigarette Smoker Smoked for 30 years, Quit 25 years ago, 1ppd ETOH Use Rarely consumes alcohol Recreational Drug Use Denies Drug Use Allergies, Adverse Reactions, Alerts Description No Known Drug Allergies Medications Active Medications SIG Qnty Indications Ordering Provider Date Metoprolol Succinate 1 by mouth every 30tabs Kishore Medina 08/07/2019 ER day MD Norman 50mg Tablets ER 24HR Omeprazole 1 by mouth every 30caps R13.10 Kishore Medina 08/07/2019 20mg Capsules day, 1 hour MD SUN Austin before dinner Trulicity Unknown 0.75mg/0.5ML Solution Pen-Inject Tamsulosin HCL Katina, Mahmoud 0.4mg MD Capsules Metformin HCL Unknown 500mg Tablets Citalopram Unknown Hydrobromide 20mg Tablets Atorvastatin Calcium Take One Tablet Unknown 40mg By Mouth Every Tablets Day Flecainide Acetate 1 by mouth twice Unknown 50mg a day. Tablets Aspirin 81 1 by mouth every Unknown 81mg Tablets day DR Immunizations Description No Information Available Vital Signs Date Vital Result Comment 08/07/2019 9:48am BP Systolic 106 mmHg BP Diastolic 60 mmHg BP Systolic Recheck 114 mmHg BP Diastolic Recheck 52 mmHg Heart Rate 36 /min Respiratory Rate 16 /min Weight 274.00 lb Weight 124.286 kg Height 69.6 inches 5'9.60" BMI (Body Mass Index) 39.8 kg/m2 Results Test Date Facility Test Result H/L Range Note Laboratory test 08/07/2019 [facility] Flecainide Level <0.10 ug/mL Low 1 finding CBC/Automated 08/07/2019 [facility] WBC 7.97 k/uL 4.60-10.20 Differential Abs Neut 3.89 2.00-7.50 % Neut 48.8 % 37.0-80.0 Abs Lymphs 2.89 K/UL 1.20-4.80 % Lymphs 36.3 % 10.0-50.0 Abs Monos 0.818 0.000-0.900 % Monos 10.30 % 0.00-12.00 Abs Eos 0.256 0.000-0.700 % Eos 3.21 % 0.00-7.00 Abs Basos 0.113 0.000-0.200 % Baso 1.41 % 0.00-4.00 RBC 4.28 m/uL 4.04-6.13 Hemoglobin 12.8 g/dL 12.2-18.1 Hematocrit 37.6 % Low 42.0-53.7 MCV 87.9 fL 80.0-97.0 MCH 29.8 pg 27.0-31.2 MCHC 34.0 g/dL 31.8-35.4 RDW 12.8 % 11.6-14.8 Platelet 161 K/uL 142-424 MPV 6.6 fL 0.0-99.9 Comprehensive 08/07/2019 [facility] Glucose 128.00 mg/dL High 70.00- 110.00 Metabolic Panel Urea Nitrogen 11 mg/dL 8-21 Creatinine 0.7 mg/dL 0.7-1.3 GFR 116.55 mL/min 2 Sodium 140 mmol/L 136-145 Potassium 4.5 mmol/L 3.5-5.1 Chloride 105 mmol/L 98-107 Total Protein 6.3 g/dL Low 6.4-8.3 Albumin 4.00 g/dL 3.30-5.00 Alanine Aminotransferase 15 U/L 0-55 Aspartate Aminotransferase 18 U/L 5-34 Alkaline Phosphatase 60 U/L 40-150 Carbon Dioxide 25.00 mmol/L 22.00-31.00 Albumin/Globulin 1.74 Ratio Osmolality 291.04 275.00-295.00 Calcium 9.30 mg/dL 8.90-10.40 Total Bilirubin 0.8 mg/dL 0.2-1.2 Globulin 2.30 2.30-4.20 BUN/Creatinine 15.49 Ratio Laboratory test finding 08/07/2019 [facility] Lipase 37 U/L 8-78 1 Reference range: 0.20 to 1.00 INTERPRETIVE INFORMATION: Flecainide Therapeutic Range: 0.20-1.00 ug/mL Toxic: Greater than 1.50 ug/mL Toxic concentrations may cause cardiac abnormalities, hypotension and seizure. See Compliance Statement B: [email or web address] Performed by [facility], [address] [place] [id number] [email or web address], Gavin Garcia MD, Lab. Director Unless otherwise specified, testing performed by Laboratory [facility], [place] [address] 2 NORMAL FUNCTION OR MILD RENAL DISEASE:>60 ml/min ADVANCED RENAL DISEASE:15-59 ml/min RENAL FAILURE:<15 ml/min Procedures Date Code Description Status 08/07/2019 54442 Electrocardiogram Complete Completed 12/02/2016 49020123 Colonoscopy Completed Medical Devices Description No Information Available Encounters Type Date Location Provider Dx Diagnosis Office Visit 08/07/2019 [address] Kishore Medina R00.1 Bradycardia, 9:00a MD Norman unspecified I48.91 Unspecified atrial fibrillation R13.10 Dysphagia, unspecified Assessments Date Code Description Provider 08/07/2019 R00.1 Bradycardia, unspecified Kishore Austin MD 08/07/2019 I48.91 Unspecified atrial fibrillation Kishore Austin MD 08/07/2019 R13.10 Dysphagia, unspecified Kishore Austin MD Plan of Treatment Future Appointment(s):09/07/2019 9:00 am - Kishore Austin MD at Suite - Kishore Austin, MDR00.1 Bradycardia, unspecifiedReferral: Thierry Barone MD, Cardiology/Phys/HpneiD93.91 Unspecified atrial yibozegibtnaO69.10 Dysphagia, unspecifiedNew Medication:Omeprazole 20 mg - 1 by mouth every day, 1 hour before dinnerReferral:Alan De La Cruz MD, Gastroenterology Functional Status Functional Condition Comment Date Status Glasses Active Partial upper dentures Active Sleep Apnea Device Active Mental Status Description No Information Available Referrals Refer to Dr Reason for Referral Status Appt Date Thierry Barone MD Consult for bradycardia Sent [address] [facility] [address] [facility] [address] [phone] Alan De La Cruz MD Consult for dysphagia Sent 11/06/2019 [facility] [address], [address] [place] [address] [phone]
--- OUTSIDE RECORDS SUMMARY | 2019-09-12 15:13 | XMS REPORT | Continuity of Care Document ---
:1950 External Reference #:[id number] Author Name Kishore Austin MD Address [address] [place] [id number] Care Team Providers Name Role Phone Mitch Gavin MD - Care Team Information Journalism Instructor [phone] Cardiovascular Disease Problems Active Problems Provider Date Atrial fibrillation Kishore Austin MD Onset: 08/07/2019 Hyperlipidemia Kishore Austin MD Onset: 08/10/2019 Anxiety Kishore Austin MD Onset: 08/07/2019 Diabetes mellitus Onset: 05/13/2015 Obstructive sleep apnea syndrome Onset: 08/12/2019 Ventricular premature beats Onset: 08/12/2019 Ventricular tachycardia Onset: 08/12/2019 Social History Type Date Description Comments Sex Unknown Tobacco Use Start: Unknown End: Former Cigarette Smoker Smoked for 30 Unknown years, Quit 25 years ago, 1ppd Smoking Status Reviewed: 08/25/19 Former Cigarette Smoker Smoked for 30 years, Quit 25 years ago, 1ppd ETOH Use Rarely consumes alcohol Recreational Drug Use Denies Drug Use Allergies, Adverse Reactions, Alerts Description No Known Drug Allergies Medications Active Medications SIG Qnty Indications Ordering Date Provider Hydrocodone-Acetamino Take 1 tablet by 20tabs Unknown 08/17/2019 phen mouth every 6 5-325mg Tablets (six) hours as needed Max Daily Amount: 4 tablets Docusate Sodium Take 5 mL (50 mg 100units Unknown 08/17/2019 total) by mouth 50mg/5ML Liquid daily Metoprolol Succinate 1 by mouth every 30tabs Kishore Medina 08/07/2019 ER day MD Norman 50mg Tablets ER 24HR Omeprazole 1 by mouth every 30caps R13.10 Kishore Medina 08/07/2019 20mg day, 1 hour MD Norman Capsules DR before dinner Omeprazole Magnesium Take 20 mg by Unknown mouth daily 20.6(20Base) mg Capsules Flecainide Acetate Take 50 mg by Unknown 50mg mouth 2 (two) Tablets times a day Tamsulosin HCL Take 0.4 mg by Unknown 0.4mg mouth daily Capsules Aspirin 81 Low Dose Chew 81 mg daily Unknown 81mg Chewtabs Trulicity Inject 0.75 mg Unknown 0.75mg/0.5ML under the skin Solution Pen-Inject once a week on Saturday Metformin HCL Take 1,000 mg by Unknown 500mg mouth 2 (two) Tablets times a day with meals Citalopram Take 20 mg by Unknown Hydrobromide mouth daily 20mg Tablets Atorvastatin Calcium Take 40 mg by Unknown mouth daily 40mg Tablets Aspirin 81 1 by mouth every Unknown 81mg Tablets day DR Barclaycainide Acetate 1 by mouth twice Unknown 50mg a day. Tablets Atorvastatin Calcium Take One Tablet Unknown By Mouth Every 40mg Tablets Day Citalopram Unknown Hydrobromide 20mg Tablets Metformin HCL Unknown 500mg Tablets Tamsulosin HCL Agus Ambriz 0.4mg MD Capsules Trulicity Unknown 0.75mg/0.5ML Solution Pen-Inject Immunizations CPT Code Status Date Vaccine Lot # [id number] Given 08/25/2019 Flu,High Dose For (Ages 65 and older) [id number] Given 09/18/2018 Flu,High Dose For (Ages 65 and older) Vital Signs Date Vital Result Comment 08/25/2019 9:42am BP Systolic 100 mmHg BP Diastolic 70 mmHg Heart Rate 64 /min Body Temperature 97.6 F Respiratory Rate 16 /min Weight 270.00 lb Weight 122.472 kg Height 69.6 inches 5'9.60" BMI (Body Mass Index) 39.2 kg/m2 08/07/2019 9:48am BP Systolic 106 mmHg BP Diastolic 60 mmHg BP Systolic Recheck 114 mmHg BP Diastolic Recheck 52 mmHg Heart Rate 36 /min Respiratory Rate 16 /min Weight 274.00 lb Weight 124.286 kg Height 69.6 inches 5'9.60" BMI (Body Mass Index) 39.8 kg/m2 Results Test Date Facility Test Result H/L Range Note Laboratory test 08/07/2019 [facility] Flecainide Level <0.10 ug/mL Low 1 finding [...] BUN/Creatinine 15.49 Ratio Laboratory test finding 08/07/2019 [facility] Lipase 37 U/L 8-78 1 Reference range: 0.20 to 1.00 INTERPRETIVE INFORMATION: Flecainide Therapeutic Range: 0.20-1.00 ug/mL Toxic: Greater than 1.50 ug/mL Toxic concentrations may cause cardiac abnormalities, hypotension and seizure. See Compliance Statement B: [email or web address] Performed by [facility], [address] [place] [id number] [email or web address], Gavin Garcia MD, Lab. Director Unless otherwise specified, testing performed by [facility] [address] [place] [address] 2 NORMAL FUNCTION OR MILD RENAL DISEASE:>60 ml/min ADVANCED RENAL DISEASE:15-59 ml/min RENAL FAILURE:<15 ml/min Procedures Date Code Description Status 08/25/2019 10774 Fundus Photography W/Interpretation & Report Completed 08/07/2019 69895 Electrocardiogram Complete Completed 12/02/2016 65464176 Colonoscopy Completed Medical Devices Description No Information Available Encounters Type Date Location Provider Dx Diagnosis Office Visit 08/07/2019 [address] Kishore Medina R00.1 Bradycardia, 9:00a MD Norman unspecified I48.91 Unspecified atrial fibrillation R13.10 Dysphagia, unspecified Assessments Date Code Description Provider 08/25/2019 K80.80 Other cholelithiasis without obstruction Kishore Austin MD 08/25/2019 E11.9 Type 2 diabetes mellitus without Kishore Austin MD complications 08/25/2019 R47.02 Dysphasia Kishore Austin MD 08/25/2019 Z23 Encounter for immunization Kishore Austin MD 08/07/2019 R00.1 Bradycardia, unspecified Kishore Austin MD 08/07/2019 I48.91 Unspecified atrial fibrillation Kishore Austin MD 08/07/2019 R13.10 Dysphagia, unspecified Kishore Austin MD Plan of Treatment Future Appointment(s):10/01/2019 10:30 am - Kishore Austin MD at [address]10/01/2019 9:30 am - Kishore Austin MD at [address] - Kishore Austin MDK80.80 Other cholelithiasis without obstructionComments:Continue to monitor incision Continue to follow up with GI and Cardiology. Follow up in 1 oymwdU18.9 Type 2 diabetes mellitus without complicationsComments:Retinavue has been mgbluondcI60.02 GpettpgzjN82 Encounter for immunization Functional Status Functional Condition Comment Date Status Glasses Active Partial upper dentures Active Sleep Apnea Device Active Mental Status Description No Information Available Referrals Refer to Reason for Referral Status Appt Date Alan De La Cruz MD Consult for dysphagia Sent 11/06/2019 [facility] [address] [facility], [address] [place] [address] [phone] Thierry Barone MD Consult for bradycardia Closed 08/12/[address] [place] [address] [address] [place] [id number] [phone]
--- OUTSIDE RECORDS SUMMARY | 2019-09-12 15:14 | XMS REPORT | Continuity of Care Document ---
:1950 External Reference #:[id number] Author Name Kishore Austin MD Address [address] [place] [phone] Problems Active Problems Provider Date Atrial fibrillation Kishore Austin MD Onset: 08/07/2019 Anxiety Kishore Austin MD Onset: 08/07/2019 Social [...] Trulicity Unknown 0.75mg/0.5ML Solution Pen-Inject Tamsulosin HCL Agus Ambriz 0.4mg MD Capsules Metformin HCL Unknown 500mg [...] Laboratory test 08/07/2019 [facility] Flecainide Level <pending> finding CBC/Automated 08/07/2019 [facility] WBC 7.97 k/uL 4.60-10.20 Differential Abs Neut [...] Creatinine 0.7 mg/dL 0.7-1.3 GFR 116.55 mL/min 1 Sodium 140 mmol/L 136-145 Potassium 4.5 mmol/L [...] [facility] Lip[facility] 37 U/L 8-78 1 NORMAL FUNCTION OR MILD RENAL DISEASE:>60 ml/min ADVANCED RENAL DISEASE:15-59 ml/min RENAL FAILURE:<15 ml/min Procedures Date Code Description Status 08/07/2019 15113 Electrocardiogram Complete Completed 12/02/2016 [id number] Colonoscopy Completed Medical Devices Description No Information Available Encounters Description No Information Available Assessments Date Code Description Provider 08/07/2019 R00.1 Bradycardia, unspecified Kishore Austin MD 08/07/2019 I48.91 Unspecified atrial fibrillation Kishore Austin MD 08/07/2019 R13.10 Dysphagia, unspecified Kishore Austin MD Plan of Treatment Future Appointment(s):09/07/2019 9:00 am - Kishore Austin MD at [address] - [facility], MDR00.1 Bradycardia, unspecifiedReferral: Thierry Barone MD, Cardiology/Phys/YspnqU26.91 Unspecified atrial potdzjjstbkmN92.10 Dysphagia, unspecifiedNew Medication:Omeprazole 20 mg - 1 by mouth every day, 1 hour before dinnerReferral:Alan De La Cruz MD, Gastroenterology Functional Status Functional Condition Comment Date Status Glasses Active Partial upper dentures Active Sleep Apnea Device Active Mental Status Description No Information Available Referrals Refer to Reason for Referral Status Appt Date Thierry Barone MD Consult for bradycardia Created [address] [place] [address] [address] [facility] [address] [phone] Alan De La Cruz MD Consult for dysphagia Created [facility] [address] [facility], [address] [place] [id number] [phone]
--- OUTSIDE RECORDS SUMMARY | 2019-09-12 15:14 | XMS REPORT | Continuity of Care Document ---
:1950 External Reference #:[id number] Author Name Kishore Austin MD Address [address] [place] [id number] Problems Active Problems Provider Date Atrial fibrillation [...] ml/min Procedures Date Code Description Status 08/07/2019 37754 Electrocardiogram Complete Completed 12/02/2016 [id number] Colonoscopy Completed Medical Devices Description No Information Available Encounters Description No Information Available Assessments Date Code Description Provider 08/07/2019 I48.91 Unspecified atrial fibrillation Kishore Austin MD 08/07/2019 R00.1 Bradycardia, unspecified Kishore Austin MD 08/07/2019 R13.10 Dysphagia, unspecified Kishore Austin MD Plan of Treatment Future Appointment(s):09/07/2019 9:00 am - Kishore Austin MD at Suite - Kishore Austin MDI48.91 Unspecified atrial gorpfnvekjtdU23.1 Bradycardia, unspecifiedReferral:Thierry Barone MD, Cardiology/Phys/UowvyB01.10 Dysphagia, unspecifiedNew Medication:Omeprazole 20 mg - 1 by mouth every day, 1 hour before dinnerReferral:Alan De La Cruz MD, Gastroenterology Functional Status Functional Condition Comment Date Status Glasses Active Partial upper dentures Active Sleep Apnea Device Active Mental Status Description No Information Available Referrals Refer to Dr Reason for Referral Status Appt Date Thierry Barone MD Consult for bradycardia Created [facility] [address] [facility] [address] [phone] Alan De La Cruz MD Consult for dysphagia Created [facility] [address] [facility], [address] [place] [address] [phone]
--- OUTSIDE RECORDS SUMMARY | 2019-09-12 15:14 | XMS REPORT | Continuity of Care Document ---
:1950 External Reference #:[id number] Author Name Joon Jarrett M.D. Address [address] [place] [address] Care Team Providers Name Role Phone Celestina Santiago MD Care Team Information Retail Helper [phone] Sohan Teixeira D.O. - Family Medicine Care Team Information Retail Helper Problems Description No Information Available Social History Type Date Description Comments Sex Unknown Tobacco Use Start: Unknown End: Used To Smoke Cigarettes But Unknown Quit. ETOH Use Rare Use Of Alcohol Recreational Drug Use Never Used Drugs Allergies, Adverse Reactions, Alerts Description No Known Drug Allergies Medications Active Medications SIG Qnty Indications Ordering Provider Date Percocet 1-2 by mouth 40tabs Joon Jarrett, 06/24/2019 5-325mg Tablets four times a day M.D. as needed for pain Metformin HCL 1 by mouth twice Unknown 500mg a day Tablets Atorvastatin Calcium 1 by mouth every Unknown 40mg day Tablets Tamsulosin HCL 1 by mouth every Unknown 0.4mg day Capsules Metoprolol Succinate 1 by mouth every Unknown ER day 100mg Tablets ER 24HR Flecainide Acetate Unknown 50mg Tablets Trulicity once sq weekly Unknown 0.75mg/0.5ML Solution Pen-Inject Aspirin [address] Mcclure 1 by mouth every Unknown Hydrobromide day 20mg Tablets History Medications Amoxicillin twice a day 1 10tabs Joon Jarrett, 07/02/2019 - 875mg Tablets week M.D. 08/05/2019 Prednisone 1 by mouth for 3 3tabs Joon Jarrett, 06/28/2019 - 10mg Tablets days M.D. 08/05/2019 Immunizations Description No Information Available Vital Signs Date Vital Result Comment 08/06/2019 9:29am Weight 272.00 lb Height 70 inches 5'10" BMI (Body Mass Index) 39.0 kg/m2 BP Systolic 114 mmHg BP Diastolic 59 mmHg Heart Rate 50 /min O2 % BldC Oximetry 95 % Body Temperature 96.5 F Pain Level 0 04/30/2019 1:34pm Weight 276.00 lb Height 70 inches 5'10" BMI (Body Mass Index) 39.6 kg/m2 BP Systolic 109 mmHg BP Diastolic 68 mmHg Heart Rate 68 /min O2 % BldC Oximetry 95 % Body Temperature 97.3 F [place] Score 11 Neck Circumference in inches 19 Pain Level 0 Results Test Date Facility Test Result H/L Range Note CBC 07/04/2019 [facility] White Blood Count 10.7 K/uL High 3.4 -10.5 1 [address] [place] [address] [phone] Red Blood Count 2.77 M/uL Low 4.20-5.80 Hemoglobin 8.5 gm/dL Low 12.8-17.0 Hematocrit 25.9 % Low 38.0-48.0 Mean Cell Volume 93.5 fl Normal 80.0-96.0 Mean Corpuscular HGB 30.7 pg Normal 27.0-33.0 Mean Corpuscular HGB Conc 32.8 g/dL Normal 31.7-36.0 Platelet Count 187 K/uL Normal 155-360 Red Cell Distri Width SD 43.1 fl Normal 36-51 Red Cell Distri Width %CV 12.7 % Normal 11.6-15.8 Mean Platelet Volume 8.7 fl Normal 6.6-10.6 NRBC % 0.0 /100WBC < 10/ 100 WBC Comprehensive 07/04/2019 [facility] Glucose 136 mg/dL High 74- 106 Metabolic Panel [address] [place] [address] [phone] BUN 15 mg/dL Normal 7-18 Creatinine 0.6 mg/dL Normal 0.6-1.3 Glom Filtration Rate, Estimate >60 mL/min >60 If >60 mL/min >60 2 BUN/Creat 25.0 ratio Sodium 138 mmol/L Normal 136-145 Potassium 4.6 mmol/L Normal 3.5-5.1 Chloride 103 mmol/L Normal 98-107 Carbon Dioxide 30 mmol/L Normal 21-32 Anion Gap 5 mEq/L Low 8-16 Calcium 8.2 mg/dL Low 8.5-10.1 Total Protein 6.0 g/dL Low 6.4-8.2 Albumin 2.9 g/dL Low 3.4-5.0 Globulin 3.1 g/dL Normal 1.9-4.3 Alb/Glob 0.9 ratio Bilirubin,Total 0.6 mg/dL Normal 0.2-1.0 Sgot/Ast 8 U/L Low 15-37 3 SGPT/Alt 12 U/L Normal 12-78 Alkaline Phosphatase 60 U/L Normal 45-117 CBC 07/03/2019 [facility] White Blood Count 14.3 K/uL High 3.4 -10.[address] [place], [place] [id number] [phone] Red Blood Count 3.14 M/uL Low 4.20-5.80 Hemoglobin 9.6 gm/dL Low 12.8-17.0 Hematocrit 28.9 % Low 38.0-48.0 Mean Cell Volume 92.0 fl Normal 80.0-96.0 Mean Corpuscular HGB 30.6 pg Normal 27.0-33.0 Mean Corpuscular HGB Conc 33.2 g/dL Normal 31.7-36.0 Platelet Count 230 K/uL Normal 155-360 Red Cell Distri Width SD 42.2 fl Normal 36-51 Red Cell Distri Width %CV 12.7 % Normal 11.6-15.8 Mean Platelet Volume 9.1 fl Normal 6.6-10.6 NRBC % 0.0 /100WBC < 10/ 100 WBC Glycohemoglobin 07/03/2019 [facility] Glycohemoglobin 5.8 % Normal 4.2-6.[address] (A1c) [place] [address] [phone] eAG 120 mg/dL Comprehensive 07/03/2019 [facility] Glucose 153 mg/dL High 74- 106 Metabolic Panel [address] [place] [address] [phone] BUN 25 mg/dL High 7-18 Creatinine 0.6 mg/dL Normal 0.6-1.3 Glom Filtration Rate, Estimate >60 mL/min >60 If >60 mL/min >60 5 BUN/Creat 41.6 ratio Sodium 136 mmol/L Normal 136-145 Potassium 4.3 mmol/L Normal 3.5-5.1 Chloride 105 mmol/L Normal 98-107 Carbon Dioxide 25 mmol/L Normal 21-32 Anion Gap 6 mEq/L Low 8-16 Calcium 8.2 mg/dL Low 8.5-10.1 Total Protein 6.3 g/dL Low 6.4-8.2 Albumin 3.0 g/dL Low 3.4-5.0 Globulin 3.3 g/dL Normal 1.9-4.3 Alb/Glob 0.9 ratio Bilirubin,Total 0.7 mg/dL Normal 0.2-1.0 Sgot/Ast 6 U/L Low 15-37 6 SGPT/Alt 13 U/L Normal 12-78 Alkaline Phosphatase 56 U/L Normal 45-117 Laboratory test 07/03/2019 [facility] Phosphorous 3.1 mg/dL Normal 2.5-4.0 finding [address] [place] [address] [phone] Magnesium 1.8 mg/dL Normal 1.8-2.4 1 EPISTAXIS 2 Note: Persistent reduction for 3 months or more in an eGFR <60 mL/min/1.73 m2 defines CKD. Patients with eGFR values >/=60 mL/min/1.73 m2 may also have CKD if evidence of persistent proteinuria is present. The original MDRD equation for estimated GFR is not valid for patients less than 18 years of age. Additional information may be found at www.kdoqi.org. 3 Values below the stated reference ranges of AST and ALT can be seen in normal populations. Clinical correlation is suggested. 4 Elevated levels of HbA1c suggest the need for more aggressive treatment of glycemia. The [employer] recommends that a primary goal of therapy should be a HbA1c of <7% and that physicians should re-evaluate the treatment regimen in patients with HbA1c values consistently >8%. 5 Note: Persistent reduction for 3 months or more in an eGFR <60 mL/min/1.73 m2 defines CKD. Patients with eGFR values >/=60 mL/min/1.73 m2 may also have CKD if evidence of persistent proteinuria is present. The original MDRD equation for estimated GFR is not valid for patients less than 18 years of age. Additional information may be found at www.kdoqi.org. 6 Values below the stated reference ranges of AST and ALT can be seen in normal populations. Clinical correlation is suggested. Procedures Date Code Description Status 07/02/2019 31262 Control Nasal Hemorrh.Ant/Complex Completed 06/24/2019 12219 Stereotactic Computer-Assisted, Cranial, Extradural Completed 06/24/2019 56511 Nasal/Sinus Endosc.W.Explor. Completed 06/24/2019 18065 Nasal/Sinus Endo Inc Sphenoido Completed 06/24/2019 30956 Nasal/Sinus Endosc.W.Max.Antrost. Completed 06/24/2019 49633 Carlos/Sinus Endosc/Cynthia Bull Res. Completed 06/24/2019 51371 Septoplasty Completed 06/24/2019 10941 Submucous Resect.Turb.Par Or Comp Completed 06/24/2019 12361 Anesthesia, Nose & Accessory Sinus Surgery Not Otherwise Completed Spec 04/30/2019 16494 Cat Scan Maxillofacial W/O Contrast,computed tomography Completed 04/30/2019 27452 Cat Scan Maxillofacial W/O Contrast,computed tomography Completed 04/30/2019 33844 Cat Scan Maxillofacial W/O Contrast,computed tomography Completed 04/30/2019 81531 Nasal Endoscopy, Diag. Completed Medical Devices Description No Information Available Encounters Type Date Location Provider Dx Diagnosis Office Visit 04/30/2019 Main Office Joon Jarrett M.D. G47.33 Obstructive sleep 1:15p apnea (adult) (pediatric) E66.9 Obesity, unspecified J34.2 Deviated nasal septum J34.3 Hypertrophy of nasal turbinates Assessments Date Code Description Provider 08/06/2019 J32.9 Chronic sinusitis, unspecified Joon Jarrett M.D. 07/04/2019 J95.830 Postprocedural hemorrhage of a respiratory Joon Jarrett M.D. system organ or structure following a respiratory system procedure 07/03/2019 J95.830 Postprocedural hemorrhage of a respiratory Joon Jarrett M.D. system organ or structure following a respiratory system procedure 07/02/2019 J95.830 Postprocedural hemorrhage of a respiratory Joon Jarrett M.D. system organ or structure following a respiratory system procedure 06/30/2019 J32.9 Chronic sinusitis, unspecified Joon Jarrett M.D. 06/24/2019 J32.9 Chronic sinusitis, unspecified Lamont Carver MD 06/24/2019 J32.9 Chronic sinusitis, unspecified Joon Jarrett M.D. 06/24/2019 J34.2 Deviated nasal septum Lamont Carver MD 06/24/2019 J34.2 Deviated nasal septum Joon Jarrett M.D. 06/24/2019 J34.3 Hypertrophy of nasal turbinates Lamont Carver MD 06/24/2019 J34.3 Hypertrophy of nasal turbinates Joon Jarrett M.D. 04/30/2019 G47.33 Obstructive sleep apnea (adult) (pediatric) Rajat Cullen MD 04/30/2019 G47.33 Obstructive sleep apnea (adult) (pediatric) Joon Jarrett M.D. 04/30/2019 E66.9 Obesity, unspecified Joon Jarrett M.D. 04/30/2019 J34.2 Deviated nasal septum Joon Jarrett M.D. 04/30/2019 J34.3 Hypertrophy of nasal turbinates Joon Jarrett M.D. Plan of Treatment Future Appointment(s):11/05/2019 9:30 am - Joon Jarrett M.D. at Main Office Functional Status Description No Information Available Mental Status Description No Information Available Referrals Description No Information Available
--- OUTSIDE RECORDS SUMMARY | 2019-09-12 15:14 | XMS REPORT | Continuity of Care Document ---
:1950 External Reference #:[id number] Author Name Joon Jarrett M.D. (transmitted by agent of provider Briana Brooks) Address [address] [place] [address] Care Team Providers Name Role Phone Celestina Santiago MD Care Team Information Visual Basic .Net Developer [phone] Sohan Teixeira D.O. - Family Medicine Care Team Information Visual Basic .Net Developer [phone] Problems Description No Information Available Social History [...] Pen-Inject Aspirin [address] Kelseyalopramichelle 1 by mouth every Unknown Hydrobromide day [...] Oximetry 95 % Body Temperature 97.3 F [place] Score 11 Neck Circumference in inches 19 Pain Level 0 Results Test Date Facility Test Result H/L Range Note CBC 07/04/2019 [facility] White Blood Count 10.7 K/uL High 3.4 -10.5 1 [address] [place], [place] [id number] [phone] Red Blood Count 2.77 M/uL Low 4.20-5.80 [...] 10/ 100 WBC Comprehensive 07/04/2019 [facility] Glucose 136 mg/dL High 74- 106 Metabolic Panel [address] [place] [address] [phone] BUN 15 mg/dL Normal 7-18 Creatinine 0.6 [...] Phosphatase 60 U/L Normal 45-117 CBC 07/03/2019 [facility] White Blood Count 14.3 K/uL High 3.4 -10.5 [address] [place] [address] [phone] Red Blood Count 3.14 M/uL Low 4.20-5.80 [...] /100WBC < 10/ 100 WBC Glycohemoglobin 07/03/2019 [facility] Glycohemoglobin 5.8 % Normal 4.2-6.[address] (A1c) [place] [address] [phone] eAG 120 mg/dL Comprehensive 07/03/2019 [facility] Glucose 153 mg/dL High 74- 106 Metabolic Panel [address] [place] [address] [phone] BUN 25 mg/dL High 7-18 Creatinine 0.6 [...] 56 U/L Normal 45-117 Laboratory test 07/03/2019 [facility] Phosphorous 3.1 mg/dL Normal 2.5-4.0 finding [address] [facility] [place] [address] [phone] Magnesium 1.8 mg/dL Normal 1.8-2.4 1 EPISTAXIS [...] for more aggressive treatment of glycemia. The [place] [employer] recommends that a primary goal [...] suggested. Procedures Date Code Description Status 07/02/2019 70277 Control Nasal Hemorrh.Ant/Complex Completed 06/24/2019 77606 Stereotactic Computer-Assisted, Cranial, Extradural Completed 06/24/2019 47232 Nasal/Sinus Endosc.W.Explor. Completed 06/24/2019 62734 Nasal/Sinus Endo Inc Sphenoido Completed 06/24/2019 84306 Nasal/Sinus Endosc.W.Max.Antrost. Completed 06/24/2019 46874 Carlos/Sinus Endosc/Cynthia Bull Res. Completed 06/24/2019 81430 Septoplasty Completed 06/24/2019 60585 Submucous Resect.Turb.Par Or Comp Completed 06/24/2019 01704 Anesthesia, Nose & Accessory Sinus Surgery Not Otherwise Completed Spec 04/30/2019 30061 Cat Scan Maxillofacial W/O Contrast,computed tomography Completed 04/30/2019 62032 Cat Scan Maxillofacial W/O Contrast,computed tomography Completed 04/30/2019 38349 Cat Scan Maxillofacial W/O Contrast,computed tomography Completed 04/30/2019 68523 Nasal Endoscopy, Diag. Completed Medical Devices Description No Information Available Encounters Type Date Location Provider Dx Diagnosis Office Visit 04/30/2019 Main Office Joon Jarrett M.D. G47.33 Obstructive sleep 1:15p apnea (adult) (pediatric) E66.9 Obesity, unspecified J34.2 Deviated nasal septum J34.3 Hypertrophy of nasal turbinates Assessments Date Code Description Provider 07/04/2019 J95.830 Postprocedural hemorrhage of a respiratory [...] turbinates Joon Jarrett M.D. Plan of Treatment No Information Available Functional Status Description No Information Available Mental Status Description No Information Available Referrals Description No Information Available
--- OUTSIDE RECORDS SUMMARY | 2019-09-12 15:14 | XMS REPORT | Continuity of Care Document ---
:1950 External Reference #:[id number] Author Name Kishore Austin MD Address [address] [place] [id number] Problems Active Problems Provider Date Atrial fibrillation [...] ml/min Procedures Date Code Description Status 08/07/2019 03195 Electrocardiogram Complete Completed 12/02/2016 56901211 Colonoscopy Completed Medical Devices Description No Information Available Encounters Description No Information Available Assessments Date Code Description Provider 08/07/2019 I48.91 Unspecified atrial fibrillation Kishore Austin MD 08/07/2019 R00.1 Bradycardia, unspecified Kishore Austin MD 08/07/2019 R13.10 Dysphagia, unspecified Kishore Austin MD Plan of Treatment Future Appointment(s):09/07/2019 9:00 am - Kishore Austin MD at Suite - Kishore Austin MDI48.91 Unspecified atrial [id number] Bradycardia, unspecifiedReferral:Thierry Barone MD, Cardiology/Phys/WjnboM47.10 Dysphagia, unspecifiedNew Medication:Omeprazole 20 mg - 1 by mouth every day, 1 hour before dinnerReferral:Alan De La Cruz MD, Gastroenterology Functional Status Functional Condition Comment Date Status Glasses Active Partial upper dentures Active Sleep Apnea Device Active Mental Status Description No Information Available Referrals Refer to Dr Reason for Referral Status Appt Date Thierry Barone MD Consult for bradycardia Created [facility] [address] [facility] [address] [phone] Alan De La Cruz MD Consult for dysphagia Created [facility] [address], [address] [place] [address] [phone]
[2019-09-12 15:21] VITALS: BP 103/59
--- NOTE | 2019-09-12 15:58 | UC ---
Throat Pain/Nasal Elian HPI - HPI Summary HPI Summary: C/O nasal congestion with sinus pain over the last 2 1/2 weeks. No fevers/ sweats or chills. Mild cough, which is worse at night. - History of Current Complaint Chief Complaint: UCGeneralIllness Stated Complaint: SINUS Hx Obtained From: Patient Onset/Duration: Gradual Onset, Lasting Weeks - 2 1/2, Still Present Severity: Moderate Pain Intensity: 5 Cough: Nonproductive Associated Signs & Symptoms: Positive: Sinus Discomfort, Nasal Discharge. Negative: Wheezing, Fever Related History: Seasonal Allergies - Allergies/Home Medications Allergies/Adverse Reactions: Allergies Allergy/AdvReac Type Severity Reaction Status Date / Time No Known Allergies Allergy Verified 09/12/19 15:21 PMH/Surg Hx/FS Hx/Imm Hx Endocrine History: Diabetes Cardiovascular History: Cardiac Disease, Hypertension, Atrial Fibrillation - Surgical History Surgical History: Yes Surgery Procedure, Year, and Place: cardiac catheterization. heart ablation - Family History Known Family History: Positive: Cardiac Disease, Hypertension, Non-Contributory - Social History Occupation: Retired Lives: With Family Alcohol Use: None Substance Use Type: None Smoking Status (MU): Former Smoker Type: Cigarettes Amount Used/How Often: 1 ppd Have You Smoked in the Last Year: No When Did the Patient Quit Smoking/Using Tobacco: ~1985 - Immunization History Most Recent Influenza Vaccination: Current for Season Most Recent Tetanus Shot: 04/21/15 Vaccination Up to Date: Yes Review of Systems All Other Systems Reviewed And Are Negative: Yes ENT: Positive: Nasal Discharge, Sinus Congestion Respiratory: Positive: Cough Is Patient Immunocompromised?: No Physical Exam Triage Information Reviewed: Yes Appearance: Well-Appearing, No Pain Distress, Obese Vital Signs: Initial Vital Signs Temp 97.9 F 09/12/19 15:17 Pulse 77 09/12/19 15:17 Resp 16 09/12/19 15:17 BP 103/59 09/12/19 15:17 Pulse Ox 95 09/12/19 15:17 Vital Signs Reviewed: Yes Eyes: Positive: Conjunctiva Clear ENT: Positive: Pharynx normal, Nasal congestion, TMs normal Neck exam: Normal Respiratory: Positive: Lungs clear, Wheezing - expiratory wheeze with coughing. Cardiovascular: Positive: RRR, No Murmur Musculoskeletal Exam: Normal Neurological Exam: Normal Psychological Exam: Normal Skin Exam: Normal Throat Pain/Nasal Course/Dx - Differential Dx/Diagnosis Differential Diagnosis/HQI/PQRI: Otitis Media, Sinusitis, URI Provider Diagnosis: Allergic rhinitis, Acute bronchospasm Discharge ED - Sign-Out/Discharge Documenting (check all that apply): Patient Departure All imaging exams completed and their final reports reviewed: No Studies - Discharge Plan Condition: Stable Disposition: HOME Prescriptions: predniSONE TAB* [Deltasone 20 MG TAB*] 60 mg PO DAILY #18 tab Patient Education Materials: Allergic Rhinitis (ED), Bronchospasm (ED), Prednisone (By mouth) Referrals: Sohan Teixeira DO [Primary Care Provider] - Additional Instructions: NASAL SPRAYS AND DROPS: Afrin in the PUMP/ MIST bottle (Get generic 12 hours nasal decongestant spray). Tilt your head down and look at the floor while doing the spray. Decongestant nasal sprays and drops often give dramatic relief from congestion. They are often recommended for patients with sinus infection to assist with sinus drainage. Persons with high blood pressure should consult the doctor before using these nasal sprays. Afrin and Agustin-Synephrine are common xvtf-veu-[id number] preparations. They should not be used for more than five days, as "rebound" congestion can occur - - the congestion flares as the drug wears off. A way of dealing with this rebound congestion problem is to medicate only one nostril each time, allowing the other nostril to recover from the medicine' s effects. When you no longer need the drug during the day, spray only one nostril each night. This helps you sleep well without severe rebound congestion. Call the doctor if you develop severe headache, palpitations, or chest pain. NEILMED SINUS RINSE: CHECK OUT AT [employer] Saline nasal wash helps with mucous, allergies and congestion. It can be used up to twice a day or only as needed. Use lukewarm tap water. It does not have to be sterilized or distilled water. Do 1/3 on each side and snort out of both nostrils. Repeat the process with 1/6 of the bottle on each side with snorting in between to finish the solution in the bottle - Billing Disposition and Condition Condition: STABLE Disposition: Home
== END 2019-09-12 16:19 | disposition home or self-care (01) ==
LOC: UCCORT 14:52
DX: J98.01 Acute bronchospasm (principal); J30.9 Allergic rhinitis, unspecified; E11.9 Type 2 diabetes mellitus without complications; Z87.891 Personal history of nicotine dependence
CPT/HCPCS: 99212; G0463